=== PATIENT | male | born 1955 | race Caucasian/White ===

== ENCOUNTER 2017-03-17 15:43 | Emergency (ER) | payer BC ==
--- NOTE | 2017-03-22 15:21 | ER ---
ADMIT: 03/17/2017 RM/LOC: ER [facility] MR#: [id number] [id number] [place], [place] [id number] [address] [place] [address] Emergency Room Report SEX: M AGE: 62 : 1955 DATE: 03/17/2017 HISTORY OF PRESENT ILLNESS: The patient is a 62-year-old male, presents to the emergency room, brought in by family members because of some episodes of confusion. He did have what they feel there could have been a period of absence, almost like a seizure. He takes Coumadin and a baby aspirin because of mechanical heart valve replaced, and his vitals are within normal limits. REVIEW OF SYSTEMS: He had a history of alcoholism, which he says now is clear, not doing that. PHYSICAL EXAMINATION: GENERAL: Alert and oriented, very pleasant gentleman with no specific neurological changes. He says he felt like he was a little disoriented or confused, but he is back to baseline. NEUROLOGICAL: Normal. NECK: Supple. HEENT: Normal inspection. CVS: Regular in rate and rhythm. ABDOMEN: Nontender. SKIN: Slightly pale. EXTREMITIES: Well perfused. LABORATORY AND IMAGING DATA: White count 6.4 with a hemoglobin of 9.3, hematocrit is 30.7, platelet count 253. His INR 3.24 and therapeutic, and ammonia 19. Toxicology negative. CMP with a calcium of 8.1, albumin 3.2. Troponin 0.015. Alcohol nondetected. The CT scan that was done showed no parenchymal hemorrhage or midline shift or mass effect. There is, however, some low attenuation within the left parietal lobe and this is something that Radiology would like for him to have an MRI to rule out any issues. At this point, I contacted Dr. Dutta on some counseling for this patient concerning this patient's history and followup. I feel that he is suitable to go home. He will need to follow up with Dr. Carlton on Monday. He is advised to come back if his symptoms worsen. Continue his medications. No alcohol drinks this weekend. CLINICAL IMPRESSION: Anemia and confusion that were resolved. ELIU Francois / Michael Rosa MD / modl JOB #: [id number] CC: Michael Rosa MD, Attending Physician William Carlton MD, Family Physician
== END 2017-03-17 18:42 | disposition home or self-care (01) ==
LOC: ER 15:43
DX: R41.0 Disorientation, unspecified (principal); D64.9 Anemia, unspecified; Z79.01 Long term (current) use of anticoagulants; Z79.82 Long term (current) use of aspirin; Z95.2 Presence of prosthetic heart valve